=== PATIENT | male | born 1970 | race African-American/Black ===

== ENCOUNTER 2018-08-26 15:44 | Emergency (ER) | payer OTHER ==
[~2018-08-26] VITALS: Ht 188 cm; Wt 106.6 kg
[~2018-08-26 15:44] MED LIST: AMBIEN 10 MG TA10 MG; BENADRYL25 MG PO; DIPHENHIST50 MG; DIPHENHIST50 MG PO; LANTUS SUBQ; LANTUS100 UNIT/M SUBQ; LANTUSSOLASTAR SUBQ; LIPITOR20 MG PO; LISINOPRIL10 MG; NORCO 5-325 TA1 EACH PO; NOVOLIN R100 UNIT/1 IJ; NOVOLOG100 UNIT/1 SQ; OXECTA7.5 MG PO; OXYCONTIN CR 1010 M1 PO; OXYCONTIN40 MG PO; PEPCID20 MG PO; PERCOCET 10-321 EACH; PERCOCET 7.5-31 EACH PO; PHENERGAN 25 MG25 M1 PO; PHENERGAN 25 MG25 MG PO; PHENERGAN50 MG; PROTONIX40 M2; PROTONIX40 M2 PO; VIOKACE 10,4401 EACH PO; XANAX 0.5 MG0.5 MG PO; XANAX XR1 MG PO; XANAX1 MG PO
[2018-08-26] MEDS ORDERED: COUMADIN 5 MG TA5 M1 PO ×2 (15:51→19:14)
[2018-08-26 16:30] LABS: HEMATOCRIT 39.8 % (42.0-52.0); HEMOGLOBIN 13.4 gm/dL (14.0-18.0); MCH 30.1 pg (26.0-34.0); MCHC 33.7 g/dL (28.0-37.0); MCV 89.3 fL (80.0-100.0); RBC 4.45 mil/uL (4.50-6.00); RDW 15.8 % (10.5-14.5); WBC 4.1 thou/uL (4.0-11.0)
[2018-08-26 16:34] LABS: CALCIUM 9.5 mg/dL (8.5-10.1); POTASSIUM 3.7 mmol/L (3.5-5.1)
[2018-08-26 16:45] LABS: APTT 33.4 Seconds (24.5-32.8); INR 1.5; PROTIME 15.3 Seconds (9.3-11.4)
[2018-08-26] MEDS ORDERED: NORCO 5-325 TA1 EACH PO (19:14)
== END 2018-08-26 22:25 | disposition home or self-care (01) ==
LOC: ER 15:44
PROVIDERS: Emergency Medicine
DX: R51 Headache (principal); M54.2 Cervicalgia; R22.0 Localized swelling, mass and lump, head; E11.9 Type 2 diabetes mellitus without complications; I10 Essential (primary) hypertension; E78.00 Pure hypercholesterolemia, unspecified; Z79.4 Long term (current) use of insulin; Z86.718 Personal history of other venous thrombosis and embolism; Z79.01 Long term (current) use of anticoagulants; Z88.5 Allergy status to narcotic agent; Z88.8 Allergy status to other drugs, medicaments and biological substances; Z88.6 Allergy status to analgesic agent; Z91.041 Radiographic dye allergy status; W19.XXXA Unspecified fall, initial encounter; Y93.89 Activity, other specified; Y92.89 Other specified places as the place of occurrence of the external cause; Y99.8 Other external cause status

== ENCOUNTER 2018-10-09 10:40 | Emergency (ER) | payer OTHER ==
[~2018-10-09] VITALS: Ht 188 cm; Wt 111.1 kg
--- NOTE | ~2018-10-09 | EKG ---
[address] [place] [address] ELECTROCARDIOGRAM REPORT Name: PINEDAJET [id number] Admission: 10/09/18 Attend Phys: Discharge: 10/09/18 Date of : 68 Report #: [id number] THIS REPORT FOR: //name// [facility] ED Test Date: 2018-10-09 Test Time: 11:15:39 Pat Name: JET PINEDA Department: Room: Gender: M Photographic Plate Maker: VERONICA : 1970 Requested By: Vonda Mccoy Order Number: [id number] MD: Good Velasco Measurements Intervals [place] Rate: 93 P: 57 [place]: 160 QRS: 26 QRSD: 88 T: 39 QT: 357 QTc: 445 Interpretive Statements Sinus rhythm Left atrial enlargement Compared to ECG 10/08/2014 13:00:50 No significant changes Electronically Signed On 10-10-2018 7:43:47 CORRECTIONS NURSE by Good Velasco [email or web address] <ELECTRONICALLY SIGNED> By: Good Velasco MD, [facility] 10/10/18 0743 1115 1115 Good Velasco MD, FACC /EPI
[~2018-10-09 10:40] MED LIST changes: +COUMADIN 5 MG TA5 M1 PO
[2018-10-09] MEDS ORDERED: NORVASC10 MG PO (10:55)
[2018-10-09] MEDS ORDERED: ATORVASTATIN CA40 MG PO (10:55)
[2018-10-09] MEDS ORDERED: PHENERGAN 25 MG25 M1 PO (10:56)
[2018-10-09] MEDS ORDERED: PANCREAZE DR 11 EAC1 PO (10:56)
[2018-10-09] MEDS ORDERED: SEROQUEL200 MG PO (11:04)
[2018-10-09] MEDS ORDERED: NEURONTIN600 MG PO (11:04)
[2018-10-09 11:12] LABS: HEMATOCRIT 39.5 % (42.0-52.0); HEMOGLOBIN 13.3 gm/dL (14.0-18.0); MCH 30.1 pg (26.0-34.0); MCHC 33.6 g/dL (28.0-37.0); MCV 89.6 fL (80.0-100.0); RBC 4.4 mil/uL (4.50-6.00); RDW 14.6 % (10.5-14.5); WBC 4.6 thou/uL (4.0-11.0)
[2018-10-09 11:20] LABS: ANION GAP 8 mmol/L (7-16); BUN 14 mg/dL (7-18); CALCIUM 9.4 mg/dL (8.5-10.1); CHLORIDE 106 mmol/L (98-107); CO2 28 mmol/L (21-32); CREATININE 1.1 mg/dL (0.7-1.3); GLUCOSE 100 mg/dL (74-106); SODIUM 142 mmol/L (136-145)
[2018-10-09 11:28] LABS: ALBUMIN 3.6 g/dL (3.4-5.0); LIPASE 153 U/L (73-393); SGOT 24 U/L (15-37); SGPT 29 U/L (30-65); TOTAL BILIRUBIN 0.4 mg/dL (<0.1-1.0); TOTAL PROTEIN 7.7 g/dL (6.4-8.2); TROPONIN-I <0.06 ng/mL (<0.06)
[2018-10-09 13:48] LABS: INR 1.3; PROTIME 13.8 Seconds (9.3-11.4)
[2018-10-09 14:34] LABS: URINE BILIRUBIN NEGATIVE (Negative); URINE BLOOD NEGATIVE (Negative); URINE CLARITY CLEAR; URINE COLOR YELLOW; URINE GLUCOSE-RANDOM* NEGATIVE (Negative); URINE KETONES NEGATIVE (Negative); URINE LEUKOCYTES-REFLEX NEGATIVE (Negative); URINE NITRITE-REFLEX NEGATIVE (Negative); URINE PROTEIN (DIPSTICK) NEGATIVE (Negative); URINE SPECIFIC GRAVITY 1.015 (1.005-1.035); URINE UROBILINOGEN 0.2 E.U./dl (0.2-1.0)
[2018-10-09 14:54] VITALS: BP 147/90
[2018-10-09] MEDS ORDERED: COUMADIN 5 MG TA5 M1 PO (14:55)
== END 2018-10-09 15:23 | disposition home or self-care (01) ==
LOC: ER 10:40
PROVIDERS: Student in an Organized Health Care Education/Training Program
DX: R10.84 Generalized abdominal pain (principal); R79.1 Abnormal coagulation profile; E11.9 Type 2 diabetes mellitus without complications; Z90.49 Acquired absence of other specified parts of digestive tract; F17.210 Nicotine dependence, cigarettes, uncomplicated; Z88.5 Allergy status to narcotic agent; Z88.6 Allergy status to analgesic agent; Z91.041 Radiographic dye allergy status; Z88.8 Allergy status to other drugs, medicaments and biological substances

== ENCOUNTER 2018-10-27 23:01 | Emergency (ER) | payer OTHER ==
[~2018-10-27] VITALS: Ht 182.9 cm; Wt 99.8 kg
--- NOTE | ~2018-10-27 | EKG ---
[address] [place] [place] [address] ELECTROCARDIOGRAM REPORT Name: JET PINEDA [id number] Admission: 10/27/18 Attend Phys: Discharge: 10/28/18 Date of : 68 Report #: [id number] THIS REPORT FOR: //name// [facility] ED Test Date: 2018-10-27 Test Time: 23:16:56 Pat Name: JET PINEDA Department: Room: Gender: Belt Fixer: [facility] : 1970 Requested By: Bassem Chaidez Order Number: [id number] MD: Good Velasco Measurements Intervals [place] Rate: 97 P: 70 CT: 164 QRS: 35 QRSD: 91 T: 46 QT: 354 QTc: 450 Interpretive Statements Sinus rhythm Normal tracing Compared to ECG 10/09/2018 11:15:39 No significant changes Electronically Signed On 10-28-2018 7:37:44 INTAKE CLINICIAN by Good Velasco [email or web address] <ELECTRONICALLY SIGNED> By: Good Velasco MD, [facility] 10/28/18 0737 2316 2316 Good Velasco MD, FACC /EPI
[~2018-10-27 23:01] MED LIST changes: +ATORVASTATIN CA40 MG PO; +NEURONTIN600 MG PO; +NORVASC10 MG PO; +PANCREAZE DR 11 EAC1 PO; +SEROQUEL200 MG PO
[2018-10-27] MEDS ORDERED: DIPHENHIST50 MG PO (23:15)
[2018-10-28 01:29] LABS: HEMATOCRIT 35.9 % (42.0-52.0); HEMOGLOBIN 11.8 gm/dL (14.0-18.0); MCH 29.2 pg (26.0-34.0); MCV 88.4 fL (80.0-100.0); PLATELET COUNT 210 thou/uL (150-400); RBC 4.06 mil/uL (4.50-6.00); RDW 14.3 % (10.5-14.5); WBC 5.3 thou/uL (4.0-11.0)
[2018-10-28 01:34] LABS: ANION GAP 6 mmol/L (7-16); BUN 18 mg/dL (7-18); CALCIUM 9.1 mg/dL (8.5-10.1); CHLORIDE 103 mmol/L (98-107); CO2 31 mmol/L (21-32); GLUCOSE 102 mg/dL (74-106); SODIUM 140 mmol/L (136-145)
[2018-10-28 01:42] LABS: APTT 34.2 Seconds (24.5-32.8); INR 1.7
[2018-10-28 01:43] LABS: ALBUMIN 3.4 g/dL (3.4-5.0); MAGNESIUM 1.6 mg/dL (1.8-2.4); SGOT 26 U/L (15-37); SGPT 42 U/L (30-65); TOTAL BILIRUBIN 0.2 mg/dL (<0.1-1.0); TROPONIN-I <0.06 ng/mL (<0.06)
[2018-10-28 01:53] LABS: ABSOLUTE NEUTROPHILS 2.6 thou/uL (1.4-8.2); ATYPICAL LYMPHS 3 %; LARGE PLATELETS OCCASIONAL
[2018-10-28] MEDS ORDERED: TRAMADOL 50 MG50 MG PO (03:25)
[2018-10-28] MEDS ORDERED: NORFLEX100 MG PO (03:25)
[2018-10-28] MEDS ORDERED: ACETAMINOPHEN-1 EAC1 PO (03:57)
[2018-10-28 04:07] VITALS: BP 124/77
== END 2018-10-28 04:07 | disposition home or self-care (01) ==
LOC: ER 23:01
PROVIDERS: Emergency Medicine
DX: M43.6 Torticollis (principal); F41.9 Anxiety disorder, unspecified; I82.622 Acute embolism and thrombosis of deep veins of left upper extremity; E11.9 Type 2 diabetes mellitus without complications; Z90.49 Acquired absence of other specified parts of digestive tract; F17.210 Nicotine dependence, cigarettes, uncomplicated; Z88.5 Allergy status to narcotic agent; Z88.6 Allergy status to analgesic agent; Z88.8 Allergy status to other drugs, medicaments and biological substances; Z91.041 Radiographic dye allergy status

== ENCOUNTER 2018-10-30 13:38 | Emergency (ER) | payer OTHER ==
[~2018-10-30] VITALS: Ht 180.3 cm; Wt 99.8 kg
--- NOTE | ~2018-10-30 | EKG ---
[place] [address] [facility] [place] [address] ELECTROCARDIOGRAM REPORT Name: JET PINEDA Room #: [facility]P [facility] [id number] Admission: 10/30/18 Attend Phys: Discharge: 10/30/18 Date of : 68 Report #: [id number] THIS REPORT FOR: //name// [facility] ED Test Date: 2018-10-30 Test Time: 13:52:10 Pat Name: JET PINEDA Department: Room: Gender: Last Repairer: jhon : 1970 Requested By: Hakeem Parada Order Number: [id number] MD: Godo Velasco Measurements Intervals [place] Rate: 98 P: 68 NV: 158 QRS: 41 QRSD: 88 T: 52 QT: 356 QTc: 455 Interpretive Statements Sinus rhythm ST elev, probable normal early repol pattern no previous ECGs available for comparison Electronically Signed On 10-31-2018 7:57:27 CUPOLA TENDER HELPER by Good Velasco [email or web address] <ELECTRONICALLY SIGNED> By: Good Velasco MD, [facility] 10/31/18 0757 1352 1352 Good Velasco MD, FACC /EPI
[~2018-10-30 13:38] MED LIST changes: +ACETAMINOPHEN-1 EAC1 PO; +NORFLEX100 MG PO; +TRAMADOL 50 MG50 MG PO
[2018-10-30 14:51] LABS: ANION GAP 6 mmol/L (7-16); BUN 20 mg/dL (7-18); CALCIUM 9.9 mg/dL (8.5-10.1); CHLORIDE 103 mmol/L (98-107); CO2 28 mmol/L (21-32); CREATININE 1.1 mg/dL (0.7-1.3); GLUCOSE 103 mg/dL (74-106); POTASSIUM 4.2 mmol/L (3.5-5.1); SODIUM 137 mmol/L (136-145)
[2018-10-30 15:00] LABS: LIPASE 105 U/L (73-393); TROPONIN-I <0.06 ng/mL (<0.06)
[2018-10-30 15:21] LABS: HEMOGLOBIN 13.7 gm/dL (14.0-18.0); MCH 29.9 pg (26.0-34.0); MCHC 33.5 g/dL (28.0-37.0); MCV 89.3 fL (80.0-100.0); PLATELET COUNT 239 thou/uL (150-400); RBC 4.59 mil/uL (4.50-6.00); RDW 14.5 % (10.5-14.5); WBC 5.6 thou/uL (4.0-11.0)
[2018-10-30 15:23] VITALS: BP 104/78
[2018-10-30 15:44] LABS: ABSOLUTE NEUTROPHILS 3.2 thou/uL (1.4-8.2); ANISOCYTOSIS 1+; POLYCHROMASIA OCCASIONAL
== END 2018-10-30 15:24 | disposition left against medical advice (07) ==
LOC: ER 13:38
PROVIDERS: Physician Assistant
DX: R07.9 Chest pain, unspecified (principal); R10.9 Unspecified abdominal pain; M79.602 Pain in left arm; M54.9 Dorsalgia, unspecified; F17.210 Nicotine dependence, cigarettes, uncomplicated; E11.9 Type 2 diabetes mellitus without complications; Z88.6 Allergy status to analgesic agent; Z88.8 Allergy status to other drugs, medicaments and biological substances; Z91.041 Radiographic dye allergy status; Z88.4 Allergy status to anesthetic agent; Z88.5 Allergy status to narcotic agent; Z90.49 Acquired absence of other specified parts of digestive tract

== ENCOUNTER 2020-03-22 08:31 | Inpatient (IN) | payer OTHER ==
[~2020-03-22] VITALS: Ht 182.9 cm; Wt 183.0 kg
[2020-03-22 08:42] VITALS: BP 143/98
[2020-03-22 10:42] LABS: AMP/METHAMP Negative (Negative); BARBITURATES Negative (Negative); BENZODIAZEPINES Negative (Negative); COCAINE Negative (Negative); METHADONE Negative (Negative); OPIATES POSITIVE (Negative); PCP Negative (Negative)
[2020-03-22 11:49] LABS: ABSOLUTE NEUTROPHILS 2.2 thou/uL (1.4-8.2); BASOPHILS 0.7 % (0.0-2.0); EOSINOPHILS 8.3 % (0.0-3.0); HEMATOCRIT 40.5 % (42.0-52.0); HEMOGLOBIN 13.2 gm/dL (14.0-18.0); LYMPHOCYTES 22.7 % (24.0-44.0); MCH 28.6 pg (26.0-34.0); MCHC 32.7 g/dL (28.0-37.0); MCV 87.5 fL (80.0-100.0); MONOCYTES 7.2 % (1.0-8.0); PLATELET COUNT 210 thou/uL (150-400); POLYS 61.1 % (36.0-66.0); RBC 4.63 mil/uL (4.50-6.00); RDW 14.7 % (10.5-14.5); WBC 3.6 thou/uL (4.0-11.0)
[2020-03-22 12:15] LABS: APTT 28.5 Seconds (24.5-32.8); D-DIMER 0.69 ug/mLFEU (0.19-0.50); PROTIME 10.5 Seconds (9.3-11.4)
[2020-03-22 12:16] LABS: ANION GAP 6 mmol/L (7-16); BUN 9 mg/dL (7-18); CALCIUM 9.3 mg/dL (8.5-10.1); CHLORIDE 102 mmol/L (98-107); CO2 31 mmol/L (21-32); GLUCOSE 95 mg/dL (74-106); SODIUM 139 mmol/L (136-145)
--- NOTE | 2020-03-22 12:21 | EKG ---
[facility] [place] [address] ELECTROCARDIOGRAM REPORT Name: JET PINEDA Room #: [facility].#: [id number] Admission: 03/22/20 Attend Phys: Discharge: Date of : 68 Report #: [id number] THIS REPORT FOR: cc: [facility] - Clinic physician unknown [facility] - Clinic physician unknown Good Velasco MD [facility] ~ THIS REPORT FOR: //name// [facility] ED Test Date: 2020-03-22 Test Time: 08:46:38 Pat Name: JET PINEDA Department: Room: Gender: M Millwright Supervisor: FRANNIE : 1970 Requested By: Bassem Chaidez Order Number: [id number] MD: Good Velasco Measurements Intervals [place] Rate: 83 P: 80 [place]: 171 QRS: 60 QRSD: 97 T: 72 QT: 371 QTc: 436 Interpretive Statements Sinus rhythm Normal tracing Compared to ECG 10/30/2018 13:52:10 ST no significant change was found Electronically Signed On 03-22-2020 12:19:57 CDT by Good Velasco [email or web address] <ELECTRONICALLY SIGNED> By: Good Velasco MD, FAC 03/22/20 1219 5 5 Good Velasco MD, [facility] /EPI
[2020-03-22 12:25] LABS: ALBUMIN 3.6 g/dL (3.4-5.0); MAGNESIUM 1.6 mg/dL (1.8-2.4); SGOT 23 U/L (15-37); SGPT 21 U/L (30-65); TOTAL BILIRUBIN 0.4 mg/dL (<0.1-1.0); TOTAL PROTEIN 7.9 g/dL (6.4-8.2)
[2020-03-22 12:41] LABS: TROPONIN-I <0.06 ng/mL (<0.06)
[2020-03-22] MEDS ORDERED: PROTONIX40 M2 PO (12:44)
[2020-03-22] MEDS ORDERED: PERCOCET 10-321 EAC1 PO ×2 (12:44)
[2020-03-22 14:32] VITALS: BP 134/86
[2020-03-22 14:44] VITALS: BP 134/86
[2020-03-22 15:23] VITALS: BP 142/83
--- NOTE | 2020-03-22 16:48 | NUR ---
PERCOOCET 10/325MG 1 TO 2 TABS PO Q6HR AND.. OXYCONTIN ER 10MG Q12 PO BOTH VARIFIED PER PHARMACIST AT [facility] IN [facility].. [phone].
[2020-03-22 20:03] VITALS: BP 127/84
[2020-03-23 03:38] VITALS: BP 123/74
[2020-03-23 04:58] LABS: ABSOLUTE NEUTROPHILS 1.3 thou/uL (1.4-8.2); BASOPHILS 0.7 % (0.0-2.0); EOSINOPHILS 12.6 % (0.0-3.0); HEMATOCRIT 36.4 % (42.0-52.0); HEMOGLOBIN 11.9 gm/dL (14.0-18.0); LYMPHOCYTES 39.1 % (24.0-44.0); MCH 28.9 pg (26.0-34.0); MCHC 32.8 g/dL (28.0-37.0); MCV 88.2 fL (80.0-100.0); MONOCYTES 11.7 % (1.0-8.0); PLATELET COUNT 180 thou/uL (150-400); POLYS 35.9 % (36.0-66.0); RBC 4.12 mil/uL (4.50-6.00); RDW 15.1 % (10.5-14.5); WBC 3.7 thou/uL (4.0-11.0)
[2020-03-23 05:16] LABS: ANION GAP 10 mmol/L (7-16); BUN 12 mg/dL (7-18); CALCIUM 8.4 mg/dL (8.5-10.1); CHLORIDE 108 mmol/L (98-107); CO2 25 mmol/L (21-32); CREATININE 0.9 mg/dL (0.7-1.3); GLUCOSE 93 mg/dL (74-106); MAGNESIUM 1.5 mg/dL (1.8-2.4); POTASSIUM 3.8 mmol/L (3.5-5.1); SODIUM 143 mmol/L (136-145); TROPONIN-I <0.06 ng/mL (<0.06)
--- NOTE | 2020-03-23 05:49 | NUR ---
PT ALERT AND ORIENTED. C/O ABDOMINAL PAIN AND SARCOIDOSIS FLARE UP. BENADRYL IV GIVEN NEEDED. PT PAIN CONTROL SEEM TO BE UNMANAGED WITH CURRENT REGIMEN. RATED PAIN AT 7/10 THE LOWEST FOR THE WHOLE NIGHT. NO NAUSEA, VOMITING OR CHEST PAIN REPORTED DURING THE NIGHT. WILL CONTINUE TO MONITOR.
[2020-03-23 08:10] VITALS: BP 155/81
--- NOTE | 2020-03-23 18:45 | NUR ---
PT TRANSFERED VIA BED AT 1700 FROM 3W FLOOR. REPORT GOT FROM RN. PT ALERT AND ORIENTED. COMPLAINING OF CHANGE OF DIET AND ACCUCHECKS. PIV IVF INFUSING. CANNOT HAVE ANY PRN MEDS YET, WILL GIVE ORDERED. WILL CONTINUE TO MONITOR
--- NOTE | 2020-03-23 19:49 | NUR ---
Assumed patient care at 0715. Vital signs have been stable. Patient has Normal Sinus Rythym. Patient has swollen lymph nodes on neck, bilaterally. He became upset this am, stating "I can't breathe!", and, "I need to be Intubated!" Patient also upset because he wanted this nurse to give him pain medications and Benadryl early. This nurse informed patient that a Doctor's Order was needed for medication changes, he continued to complain and became very demanding. Patient also requested that Respiratory Therapy come to give him a Breathing Treatment. Respiratory Therapy came, he refused a breathing treatment, stating "I am allergic to Steroids!" Respiratory Therapy then informed patient that a Blood Gas needed to be done; patient refused this as well. Dr Aguayo notified, came to assess patient. He ordered several consults and CT Scans. Patient called several times during this shift, continued to try to get this nurse to give him pain medications and Benadryl earlier. Patient has called the Automotive Parts Clerk to complain about food, tried to call Nursing Data Security Coordinator to complain about this nurse. He calmed down later in the day. Patient was moved to [address] [place] [address] this evening, as he tested negative for COVID-19. Report given to recieving nurse.
[2020-03-23 19:59] VITALS: BP 119/71
--- NOTE | 2020-03-24 03:00 | NUR ---
ASSESSED AT START OF SHIFT PT C/O OF SEVERAL THINGS. STATED HE'S NOT DIABETIC AND DIDNT WANT AID TO CHECK HIS SUGAR. THIS NURSE EDUCATED PT AND BLOOD SUGAR CHECKED. PAIN MEDS GIVEN ROUND THE CLOCK FOR GENERALIZIED PAIN IN BODY AND AROUND LYMPH NODES. INFORMED PT HE WAS GOIING TO BE NPO AFTER MIDNIGHT FOR EGD. PT WASN'T TOO HAPPY STATES HE EATS MORE AT NIGHT. REQUESTING PO PAIN MED WITH SIPS OF WATER INFORMED JOVITA WOLFE. IV FENTYLN GIVEN PARTIAL RELIEF, BENADRYL ALSO ADMINISTERED. PT STILL NPO, IV INTACT AND FLUIDS INFUISING. WILL CONT TO MONITOR TILL EOS.
[2020-03-24 05:14] VITALS: BP 113/78
[2020-03-24 06:31] LABS: HEMATOCRIT 35.7 % (42.0-52.0); HEMOGLOBIN 11.6 gm/dL (14.0-18.0); MCH 28.8 pg (26.0-34.0); MCHC 32.5 g/dL (28.0-37.0); MCV 88.6 fL (80.0-100.0); RBC 4.03 mil/uL (4.50-6.00); RDW 15.3 % (10.5-14.5); WBC 3.1 thou/uL (4.0-11.0)
[2020-03-24 06:40] LABS: INR 1.3; PROTIME 13.4 Seconds (9.3-11.4)
[2020-03-24 06:45] LABS: CALCIUM 8.3 mg/dL (8.5-10.1); CREATININE 0.9 mg/dL (0.7-1.3); MAGNESIUM 1.6 mg/dL (1.8-2.4)
--- NOTE | 2020-03-24 13:08 | NUR ---
ASSUMED CARE OF THE PT AT 0700. PT REFUSED VITALS IN THE AM WELL ACCUCHEK. PT HAS DRUG SEEKING BEHAVIOR, BECAME IRATE ONCE HE WAS TOLD THAT FENTANYL WAS D/C'D AND THAT DILAUDID WAS A ONE TIME DOSE, ALSO EXPLAINED TO PT THAT OTHER MEDS HAD TO BE GIVEN ON A SCHEDULE, PT BECAME UPSET AND REQUESTED TO LEAVE AMA, REFUSED EGD THAT WAS SCHEDULED FOR TODAY. REFUSED SCD'S. PT IS AMBULATORY AND USES TOILET. ADVISED DOCTOR OF PTS BEHAVIOR. IV REMOVED AND AMA PAPERWORK SIGNED. NO PO MEDS GIVEN PT WAS NPO. PT D/C'D.
--- NOTE | 2020-03-24 17:22 | HC ---
[facility] [place] [address] CONSULTATION Name: JET PINEDA Room #: 439-P [facility] IN M.R.#: [id number] Admission: 03/22/20 Attend Phys: Lucho Farah MD Discharge: 03/24/20 Date of : 68 Report #: [id number] THIS REPORT FOR: cc: [facility] - Clinic physician unknown [facility] - Clinic physician unknown Mat Chan MD ~ CC: [facility] unknown Chris Farah DATE OF SERVICE: 03/23/2020 SURGEON: Dr. Mat Chan. REASON FOR CONSULTATION: Multitude of symptoms of the head and neck. HISTORY OF PRESENT ILLNESS: The patient is a 49-year-old gentleman who is known to our practice and was seen by my partner, Dr. Daly last in 1998, 20 years ago. At that time with parotitis pre-dating his diagnosis of sarcoidosis. The patient presented to the Emergency Department yesterday with complaints of left-sided chest pain. He used to live in [place], moved to [place], [place] and then has recently moved back from [place] to [place]. He has been followed at [facility]. The patient has had a primary care there and recommendations have been made for him to see a customer service manager, but that never happened. His history is significant for factor V Leiden deficiency with the sarcoidosis. He has a history of previous pulmonary emboli and DVTs. The patient is currently having some gastroenterology complaints and including nausea and vomiting starting 72 hours ago and emesis, the patient has been seen by GI and EGD and has been planned for tomorrow. He complained to Dr. Aguayo about a sensation of pressure around his neck and parotids. This is a frequent problem for him with frequent exacerbations of swelling of the parotid with his sarcoidosis. The patient states that he in the past has had severe swelling to the point that he has needed intubation x6 in the past. I have reviewed his CT scan of neck done without contrast today. This showed a very patent airway. There was no pathologically enlarged adenopathy, but slightly larger parotids without abscess. These would be consistent with his known sarcoidosis. The patient also has mediastinal and hilar adenopathy in addition to abdominal adenopathy. The patient has had difficulty with steroids for treatment of his sarcoidosis. [address] [place] [address] CONSULTATION Name: JET PINEDA Room #: 439-P [facility] IN .R.#: [id number] Admission: 03/22/20 Attend Phys: Lucho Farah MD Discharge: 03/24/20 Date of : 68 Report #: [id number] He did not initially get that history, but on talking with Dr. Aguayo went back and challenged the patient with this. He states that this has caused him skin rashes in addition to exacerbation of airway swelling. I explained to him that steroids are mainstay treatment for the sarcoid. I have suggested to him that we involve a customer service manager here in the hospital for other options. All of these are not without some risk in this COVID-19 pandemic. PAST MEDICAL HISTORY: Significant for sarcoidosis, factor V Leiden, history of pulmonary emboli, history of deep venous thrombosis, history of pancreatitis, history of colon polyps, history of diabetes mellitus. PAST SURGICAL HISTORY: Cholecystectomy and shoulder surgery. FAMILY HISTORY: Significant for father with colon cancer. SOCIAL HISTORY: The patient does have a supportive family. He does use tobacco. He denies alcohol or illicit drugs. REVIEW OF SYSTEMS: Positive for a sensation of fullness in his parotids with some pain and trismus. Otherwise, he is also having nausea and vomiting and some abdominal pain. Other 12-point review of systems negative. PHYSICAL EXAMINATION: GENERAL: Shows a well-developed 49-year-old male seen in his hospital room. He is alert, awake, oriented, and conversant. He is having no airway distress. VITAL SIGNS: Show temperature of 97.8, pulse of 83, blood pressure 155/81, respirations 16. He is 96-100% on room air. HEENT: He is normocephalic. His pupils equal, round and reactive to light. Otologic and nasal exam shows a deviated septum to the left. Oral cavity: Tonsils are 2+, nonacute. Tongue and floor of mouth are normal. No swelling of the floor of mouth or tongue and no induration of tongue on palpation. The patient does have generous sialosis present secondary to sarcoid. This is somewhat tender. There is no fluctuant abscess. There is no overlying skin redness. The neck shows shotty level 2 and level 3 lymphadenopathy that does not appear to be abnormal in size. This is nontender. NECK: Trachea is in the midline. Thyroid gland is normal size. There are no masses. NEUROLOGIC: Cranial nerves 2-12 are intact. Motor, sensory and cerebellar exams are otherwise normal. LABORATORY DATA: Blood work today, CBC shows a white count of 3700 with a hemoglobin of 11.9, platelets of 180,000. Metabolic panel shows normal electrolytes with the exception of a slightly elevated chloride. The patient's calcium was 8.4, magnesium 1.5. I have reviewed the CT of neck without contrast with findings as above. There is no abscess. The lymph nodes that I see as well as parotids are consistent with his history of sarcoidosis. The patient [facility] [address] [place] [address] CONSULTATION Name: JET PINEDA Room #: 439-P [facility] IN M.R.#: [id number] Admission: 03/22/20 Attend Phys: Lucho Farah MD Discharge: 03/24/20 Date of : 68 Report #: [id number] does have mediastinal adenopathy on CT chest without contrast. ASSESSMENT: 1. Longstanding history of chronic sarcoidosis resulting in shotty lymphadenopathy of the neck without any airway compromise. In addition, involvement of the patient's parotid glands, more than submandibular glands resulting in intermittent sialosis. This is not consistent with an acute bacterial sialadenitis. 2. Hematemesis with a hemoglobin of 11.9. The patient is pending GI consultation for esophagogastroduodenoscopy. 3. History of factor V Leiden with previous history of deep venous thrombosis and pulmonary emboli. 4. The patient has been ruled out from COVID-19 on PCR testing. 5. Anxiety. Long discussion with the patient today concerning his airway, I assured him that things are safe. Today, we discussed steroids as treatment of his sarcoidosis. The patient is reticent to use this as he has had a bad experience in the past with steroids. I told him that this may be coincidental. I have suggested and talked with Dr. Aguayo about Rheumatology consultation to discuss other treatment options for sarcoidosis. I reviewed with him that all of these carry some risk in this COVID-19 pandemic for immunosuppression. 6. History of pancreatitis. PLAN: 1. Agree with current treatment. I have discussed symptomatic treatment of his parotids including heat with a heating pad 20 minutes 3 times a day, increase oral fluid intake and sialagogues in the form of lemon drops or other sour candy, sugar free. 2. Rheumatology consultation. I have discussed with Dr. Aguayo for other options on medication treatment as the patient feels that he cannot take oral or parenteral steroids. 3. I see no evidence of abscess or other mass on CT that would require surgical intervention at this point. 4. I appreciate the consultation and ability to share in his care. I will be available and follow peripherally. I am available for any change in clinical status. <ELECTRONICALLY SIGNED> By: Mat Chan MD 03/24/20 1722 1555 1752 Mat Chan MD /nt
== END 2020-03-24 10:43 | disposition left against medical advice (07) | DRG 197 ==
LOC: ER 08:31 → EROBS 14:01 → 3W 14:55 → 4S 03-23 17:02
PROVIDERS: Emergency Medicine; Internal Medicine; Nurse Practitioner; ADMIT Hospitalist
DX: D86.9 Sarcoidosis, unspecified (principal); D68.2 Hereditary deficiency of other clotting factors; K92.0 Hematemesis; E11.9 Type 2 diabetes mellitus without complications; F17.210 Nicotine dependence, cigarettes, uncomplicated; D64.9 Anemia, unspecified; F41.9 Anxiety disorder, unspecified; G89.29 Other chronic pain; Z20.828 Contact with and (suspected) exposure to other viral communicable diseases; Z86.711 Personal history of pulmonary embolism; Z91.041 Radiographic dye allergy status; Z79.891 Long term (current) use of opiate analgesic; Z90.49 Acquired absence of other specified parts of digestive tract; Z88.6 Allergy status to analgesic agent; Z88.8 Allergy status to other drugs, medicaments and biological substances; Z86.718 Personal history of other venous thrombosis and embolism; Z80.0 Family history of malignant neoplasm of digestive organs; Z53.29 Procedure and treatment not carried out because of patient's decision for other reasons
CPT/HCPCS: 10100; 10195; 10879

== ENCOUNTER 2020-04-22 08:25 | Inpatient (IN) | payer OTHER ==
[~2020-04-22] VITALS: Ht 180.3 cm; Wt 82.6 kg
[2020-04-22] VITALS (22 sets, daily range): BP systolic 98–151; BP diastolic 70–104
[~2020-04-22 08:25] MED LIST changes: +PERCOCET 10-321 EAC1 PO
[2020-04-22 09:09] LABS: HEMOGLOBIN 12.6 gm/dL (14.0-18.0); MCH 29.2 pg (26.0-34.0); MCHC 33.1 g/dL (28.0-37.0); MCV 88.1 fL (80.0-100.0); PLATELET COUNT 192 thou/uL (150-400); RBC 4.32 mil/uL (4.50-6.00); RDW 15.2 % (10.5-14.5); WBC 3.5 thou/uL (4.0-11.0)
[2020-04-22 09:18] LABS: ANION GAP 6 mmol/L (7-16); BUN 13 mg/dL (7-18); CALCIUM 9.2 mg/dL (8.5-10.1); CHLORIDE 107 mmol/L (98-107); CO2 30 mmol/L (21-32); CREATININE 0.8 mg/dL (0.7-1.3); GLUCOSE 103 mg/dL (74-106); POTASSIUM 3.5 mmol/L (3.5-5.1); SODIUM 143 mmol/L (136-145)
--- NOTE | 2020-04-22 09:26 | EKG ---
[facility] [place] [address] ELECTROCARDIOGRAM REPORT Name: JET PINEDA Room #: PRE M..#: [id number] Admission: Attend Phys: Discharge: Date of : 68 Report #: [id number] THIS REPORT FOR: cc: [facility] - Clinic physician unknown [facility] - Clinic physician unknown Good Velasco MD [facility] ~ THIS REPORT FOR: //name// [facility] ED Test Date: 2020-04-22 Test Time: 08:30:49 Pat Name: JET PINEDA Department: Room: Gender: M Visual C Developer: [place] : 1970 Requested By: Nikos Kaminski Order Number: [id number] MD: Good Velasco Measurements Intervals [place] Rate: 87 P: 89 [place]: 164 QRS: 72 QRSD: 89 T: 59 QT: 365 QTc: 439 Interpretive Statements Sinus rhythm No significant abnormality Compared to ECG 03/22/2020 08:46:38 No significant change was found Electronically Signed On 04-22-2020 9:24:51 CDT by Good Velasco [email or web address] <ELECTRONICALLY SIGNED> By: Good Velasco MD, [facility] 04/22/20923 9 9 Good Velasco MD, FACC /EPI
[2020-04-22 09:27] LABS: TROPONIN-I <0.06 ng/mL (<0.06)
[2020-04-22 10:23] LABS: BE(vivo) -2.5 mmol/L (-2 to +3); HCO3 23.9 mmol/L (22.0-26.0); PCO2 47.4 mmHg (35.0-45.0); PO2 156.4 mmHg (80.0-100.0); sO2 98.8 % (92.0-98.0)
[2020-04-22 10:49] LABS: ABSOLUTE NEUTROPHILS 1.9 thou/uL (1.4-8.2); ANISOCYTOSIS 1+
--- NOTE | 2020-04-22 19:50 | NUR ---
PATIENT ADMITTED TO ICU AT 1540 BY THIS RN. PATIENT ON VENT AND SEDATED ON PROPOFOL; MOVING EXTREMITIES, NOT FOLLOWING COMMANDS; VSS. UNABLE TO REACH SISTER AT [phone] (LISTED DPOA); CALLED JULIO CESAR ZULUAGA - SECONDARY ORNAMENTAL RAIL INSTALLER AT [phone] AND LEFT A VOICEMAIL. REPORT GIVEN TO ONCOMING RN.
[2020-04-23] VITALS (28 sets, daily range): BP systolic 91–137; BP diastolic 55–88
--- NOTE | 2020-04-23 05:13 | NUR ---
Pt has rested well through noc lightly sedated on ventilator. Propofol at 35 mcg/kg/min and Fentanyl gtt @ 100 mcg/hr as pt reports chronic generalized pain. Pt able to make needs known by writing and seems to be neurologically intact. Tolerating vent settings. Grimaldo to DD w/ marginal amount of purulent/pink urine. Pt repositioned q2-3 hours and per his requests. Bed low and locked, bed alarm activated for patient safety. Will continue to monitor closely.
[2020-04-23 05:14] LABS: BE(vivo) -2.4 mmol/L (-2 to +3); HCO3 20.9 mmol/L (22.0-26.0); PCO2 31.6 mmHg (35.0-45.0); pH 7.439 (7.360-7.450); sO2 99.2 % (92.0-98.0)
[2020-04-23 07:33] LABS: URINE BILIRUBIN NEGATIVE (Negative); URINE BLOOD NEGATIVE (Negative); URINE COLOR YELLOW; URINE GLUCOSE-RANDOM* NEGATIVE (Negative); URINE KETONES NEGATIVE (Negative); URINE LEUKOCYTES-REFLEX TRACE (Negative); URINE NITRITE-REFLEX NEGATIVE (Negative); URINE PROTEIN (DIPSTICK) NEGATIVE (Negative); URINE SPECIFIC GRAVITY >= 1.030 (1.005-1.035)
[2020-04-23 07:39] LABS: URINE CLARITY CLOUDY
[2020-04-23 09:19] LABS: CALCIUM 8.9 mg/dL (8.5-10.1); CREATININE 0.9 mg/dL (0.7-1.3)
[2020-04-23 09:21] LABS: APTT 29.6 Seconds (24.5-32.8); INR 1.1; PROTIME 10.9 Seconds (9.3-11.4)
--- NOTE | 2020-04-23 09:43 | 2DMMODE ---
[facility] [address] [address] 2 D/M-MODE ECHOCARDIOGRAM Name: JET PINEDA Room #: 245-P ADM IN M.R.#: [id number] Admission: 04/22/20 Attend Phys: Rja Eng MD Discharge: Date of : 68 Report #: [id number] THIS REPORT FOR: cc: [facility] - Clinic physician unknown [facility] - Clinic physician unknown Good Velasco MD [facility] ~ APPROVED REPORT Study performed: 04/23/2020 08:43:22 EXAM: Comprehensive 2D, Doppler, and color-flow Echocardiogram Patient Location: ICU Room #: 249 Status: routine BSA: 2.01 HR: 51 bpm BP: 93/58 mmHg Rhythm: NSR Other Information Study Quality: Good/patient on vent Indications History of sarcoidosis. Chest tightness, short of breath. Hx: DM 2D Dimensions RVDd: 35.21 mm IVSd: 9.55 (7-11mm) LVOT Diam: 21.92 (18-24mm) LVDd: 45.20 mm PWd: 8.99 (7-11mm) LVDs: 30.14 (25-40mm) Aortic Root: 33.51 mm Volumes Left Atrial Volume (Systole) Single Plane 4CH: 30.99 mL Single Plane 2CH: 53.86 mL LA ESV Index: 23.00 mL/m2 Aortic Valve AoV Peak Shravan.: 1.17 m/s AO Peak Gr.: 5.49 mmHg LVOT Max P.57 mmHg LVOT Max V: 1.18 m/s EILEEN Vmax: 3.[address] [facility] [address] [place] [address] 2 D/M-MODE ECHOCARDIOGRAM Name: PINEDAJET Room #: 245-P [facility] IN Shay.#: [id number] Admission: 04/22/20 Attend Phys: Raj Eng MD Discharge: Date of : 68 Report #: [id number] Mitral Valve E/A Ratio: 1.4 MV Decel. Time: 195.12 ms MV E Max Shravan.: 0.62 m/s MV A Shravan.: 0.43 m/s MV PHT: 56.58 ms IVRT: 107.27 ms Pulmonary Valve PV Peak Shravan.: 0.68 m/s PV Peak Gr.: 1.85 mmHg Pulmonary Vein P Vein S: 0.52 m/s P Vein A: 0.27 m/s P Vein D: 0.42 m/s P Vein A Dur.: 90.0 msec P Vein S/D Ratio: 1.24 Tricuspid Valve TR Peak Shravan.: 2.31 m/s RAP Estimate: 10.00 mmHg TR Peak Gr.: 21.36 mmHg PA Pressure: 31.00 mmHg Left Ventricle The left ventricle is normal size. There is normal LV segmental wall motion. There is normal left ventricular wall thickness. Left ventricular systolic function is normal. LVEF is 55-60%. The left ventricular diastolic function is normal. Right Ventricle The right ventricle is normal size. The right ventricular systolic function is normal. Atria The left atrium size is normal. The right atrium size is normal. Aortic Valve The aortic valve leaflets are mildly thickened. No aortic regurgitation is present. There is no aortic valvular stenosis. Mitral Valve The mitral valve is normal in structure. Mild mitral regurgitation. Tricuspid Valve [facility] [place] [address] 2 D/M-MODE ECHOCARDIOGRAM Name: JET PINEDA Room #: 245-P ADM IN M.R.#: [id number] Admission: 04/22/20 Attend Phys: Raj Eng MD Discharge: Date of : 68 Report #: [id number] The tricuspid valve is normal in structure. Mild tricuspid regurgitation. Estimated PAP is 30mmHg. Pulmonic Valve The pulmonary valve is normal in structure. There is no pulmonic valvular regurgitation. Great Vessels The aortic root is normal in size. Ascending aorta is not well visualized. IVC is normal in size and collapses <50% with inspiration. Pericardium There is no pericardial effusion. <Conclusion> Left ventricular systolic function is normal. There is normal LV segmental wall motion. LVEF is 55-60%. Normal diastolic function The aortic valve leaflets are mildly thickened. No aortic regurgitation or stenosis The mitral valve is normal in structure. Mild mitral regurgitation. Mild tricuspid regurgitation. Estimated pulmonary artery pressure of 30mmHg. There is no pericardial effusion. <ELECTRONICALLY SIGNED> By: Good Velasco MD, [facility] 04/23/20939 9 9 Good Velasco MD, FACC /INF
--- NOTE | 2020-04-23 10:00 | NUR ---
ASSESSMENTS AND INTERVENTIONS DOCCUMENTED. RN ASSUMED CARE OF PATIENT AT 0700. PATIENT ON PROPFOL AND FENTANYL GTT. PATIENT WRITING ON PAPER AND STATING HE IS IN PAIN AND HAS A HIGH TOLERANCE TO PAIN MEDICATIONS. DR VILLANUEVA AWARE, AND ORDER FOR ATIVAN GIVEN. ECHO AT BEDSIDE.
--- NOTE | 2020-04-23 10:31 | NUR ---
chart review. pt remain on vent is able to write on paper with light sed. unable to visit with pt rt on vent unable to talk via phone call. cm tried calling contract stalin, no answer. will cont following as needed for dc needs.
[2020-04-23 11:07] LABS: ALBUMIN 3.1 g/dL (3.4-5.0); DIRECT BILIRUBIN 0.1 mg/dL (<0.1-0.2); TOTAL BILIRUBIN 0.6 mg/dL (0.2-1.0); TOTAL PROTEIN 6.9 g/dL (6.4-8.2)
[2020-04-23 11:22] LABS: HEMATOCRIT 34.3 % (42.0-52.0); HEMOGLOBIN 11.7 gm/dL (14.0-18.0); MCH 29.6 pg (26.0-34.0); MCHC 34.1 g/dL (28.0-37.0); MCV 86.9 fL (80.0-100.0); RBC 3.95 mil/uL (4.50-6.00); RDW 14.9 % (10.5-14.5)
[2020-04-23 17:09] LABS: AMP/METHAMP Negative (Negative); BARBITURATES Negative (Negative); BENZODIAZEPINES POSITIVE (Negative); COCAINE Negative (Negative); METHADONE Negative (Negative); OPIATES POSITIVE (Negative); PCP Negative (Negative)
--- NOTE | 2020-04-23 22:21 | NUR ---
2100 - PT REQUESTED I CALL HIS SISTER (Denice). CALLED PHONE NUMBER LISTED ON MEDICAL RECORD - NO ANSWER AND UNABLE TO LEAVE MESSAGE. ATTEMPTED TO CALL HER WTIH ANOTHER NUMBER PROVIDED BY PT. PHONE RANG AND WENT TO VOICEMAIL. THIS RN INFORMED PT THAT I WAS UNABLE TO REACH HIS SISTER.
[2020-04-24] VITALS (29 sets, daily range): BP systolic 111–152; BP diastolic 66–108
--- NOTE | 2020-04-24 01:15 | NUR ---
PT'S HR 35-40S SO FAR THIS SHIFT. SBP 120S-140S. PER DAY SHIFT RN, DR VILLANUEVA IS AWARE OF LOW HR. TITRATED FENTANYL AND PROPOFOL GTTS DOWN SLIGHTLY TO SEE IF HR WOULD IMPROVE. PT THEN BECAME VERY RESTLESS AND STATED HE COULD NOT SLEEP. HE IS NORMALLY LIGHTLY SEDATED OR COMFORTABLY DROWSY WITH SEDATION ON THE VENT. HE ARROUSES EASILY AND FOLLOWS COMMANDS. HE COMMUNICATES BY MOUTHING WORDS OR WRITING. RN OFFERED PT PRN LORAZEPAM BUT HE REFUSED AND SAID IT DOESN'T WORK FOR HIM. PRN BENADRYL GIVEN INSTEAD. PT WAS THEN ABLE TO GO TO RELAX AND GO TO SLEEP. HR STILL 35-40S. PT IS STILL EASILY ARROUSABLE BUT QUICKLY FALLS BACK TO SLEEP. WILL CONTINUE TO MONITOR CLOSELY.
[2020-04-24 06:12] LABS: CALCIUM 8.6 mg/dL (8.5-10.1); CREATININE 0.8 mg/dL (0.7-1.3); POTASSIUM 3.9 mmol/L (3.5-5.1)
--- NOTE | 2020-04-24 07:37 | NUR ---
PT SLEPT MOST OF THE NIGHT AFTER BEING GIVEN BENADRYL. AFEBRILE. Q2H TURN TO PREVENT SKIN BREAKDOWN. ORAL CARE PROVIDED. REMAINS LIGHTLY SEDATED WITH FENTANYL AND PROPOFOL GTTS. ADEQUATE URINE OUTPUT VIA MARTINEZ. FALL PRECAUTIONS IN PLACE. REPORT GIVEN TO DAY SHIFT RN. PROGRESSING SLOWLY TOWARD POC GOALS.
--- NOTE | 2020-04-24 21:44 | NUR ---
UPON INITIAL ASSESSMENT, PT DENIED ANY PAIN EXCEPT THAT HE INDICATED HE WAS HUNGRY. PT EDUCATED ON POC AND THAT HE CANNOT EAT AT THIS TIME. PT INDICATED UNDERSTANDING. PT IS LIGHTLY SEDATED WITH PROPOFOL AND FENTANYL GTTS. HE IS EASILY ARROUSABLE TO VERBAL STIMULI AND FOLLOWS COMMANDS. AFEBRILE. COMPLETE BED BATH GIVEN. PT RESTING CALMLY AT THIS TIME. HE INDICATED HE WAS COMFORTABLE AND WILL GO TO SLEEP. WILL CONTINUE TO MONITOR.
[2020-04-25] VITALS (26 sets, daily range): BP systolic 109–155; BP diastolic 67–100
--- NOTE | 2020-04-25 03:30 | NUR ---
PT HAS BEEN RESTING WELL DURING THE NIGHT WITH LIGHT SEDATION. HR 40S MOST OF THE SHIFT. AFEBRILE. REPOSITIONED TO PREVENT SKIN BREAKDOWN. ORAL CARE PROVIDED. FALL PRECAUTIONS IN PLACE. PROGRESSING TOWARD POC GOALS. WILL CONTINUE TO MONITOR FURTHER.
[2020-04-25 06:16] LABS: HEMATOCRIT 33.8 % (42.0-52.0); HEMOGLOBIN 11.2 gm/dL (14.0-18.0); MCH 29.1 pg (26.0-34.0); MCV 88.2 fL (80.0-100.0); RBC 3.83 mil/uL (4.50-6.00); RDW 15.4 % (10.5-14.5); WBC 7.4 thou/uL (4.0-11.0)
[2020-04-25 06:34] LABS: CALCIUM 8.4 mg/dL (8.5-10.1); CREATININE 0.8 mg/dL (0.7-1.3); POTASSIUM 3.9 mmol/L (3.5-5.1)
[2020-04-25 06:45] LABS: TROPONIN-I <0.06 ng/mL (<0.06)
[2020-04-25 09:25] LABS: BE(vivo) -3.5 mmol/L (-2 to +3); HCO3 21.5 mmol/L (22.0-26.0); PO2 124.1 mmHg (80.0-100.0); sO2 98.4 % (92.0-98.0)
--- NOTE | 2020-04-25 11:35 | EKG ---
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
--- NOTE | 2020-04-25 12:55 | NUR ---
ATTEMPTED WEANING/CPAP TRIAL THIS AM. AND DR. TATE INFORMED FO RESULTS. INSTRUCTED TO KEEP PT ON MECHANICAL VENTILATOION FOR TODAY AND DR. TATE WILL ATTEMPT EXTUBATION ON SUNDAY.
--- NOTE | 2020-04-25 18:00 | NUR ---
PT REMAINED ON VENTILATOR RESTING IN BEDANDON SEDATION. PT SCHEDULED TO BE EXTUBATED IN AM PER DR. TATE. PT PROGRESSING TOWARDS GOALS.
[2020-04-26] VITALS (28 sets, daily range): BP systolic 124–170; BP diastolic 75–109
--- NOTE | 2020-04-26 01:34 | NUR ---
PT SEDATED COMFORTABLY ON THE VENT. PROPOFOL GTT AND FENTANYL GTT INFUSING. PT OPENS EYES AND RESPONDS TO VERBAL OR TACTILE STIMULI. PT NODS HEAD TO YES/NO QUESTIONS. AFEBRILE. HR 30S-50S. SB ON TELE. ORAL CARE PROVIDED. PROGRESSING SLOWLY TOWARD POC GOALS. WILL CONTINUE TO MONITOR.
[2020-04-26 05:19] LABS: CALCIUM 8.2 mg/dL (8.5-10.1); CREATININE 0.8 mg/dL (0.7-1.3); POTASSIUM 3.7 mmol/L (3.5-5.1)
--- NOTE | 2020-04-26 09:15 | NUR ---
0910- Dr. Farah updated on patient plan of care to perform cpap trial today and possible extubation.
--- NOTE | 2020-04-26 11:28 | NUR ---
Nutrition: Pt day 5 vent but plans for extubation today. If unable to extubate, rec start enteral feeds.
[2020-04-26 13:58] LABS: BE(vivo) -2.2 mmol/L (-2 to +3); HCO3 23.3 mmol/L (22.0-26.0); PCO2 42.2 mmHg (35.0-45.0); PO2 103.3 mmHg (80.0-100.0); pH 7.359 (7.360-7.450); sO2 97.5 % (92.0-98.0)
--- NOTE | 2020-04-26 14:50 | NUR ---
cpap trial today from 1236- until extubation at 1450. ABG performed and results noted to Dr. Pastor. He expressed to extubate patient. Patients Respiratory rate was regular 7-16 Heart rate sinus bradycardia and sinus rhythm 40- 60's, blood pressure 130's-170's, Patient was midly anxious in regards to getting extubated and the process causing pain. 1450- patient extubated. tolerated well.
--- NOTE | 2020-04-26 16:27 | NUR ---
SW reviewed chart and spoke with attending physician. Pt remains intubated and in ICU. Pt to have CPAP trials with goal of extubation today. Will need therapy evals ordered when pt is able to participate. SW is following to assist as needed with discharge planning.
--- NOTE | 2020-04-26 17:24 | NUR ---
1720- Patient report he feels as if his throat is swelling again. 02 Saturation 97%, Heart rate 77 bpm, BP 150/88, some swelling noted on his neck/mandible area. Nurse placed call to Dr. Pastor. Nurse to continue to monitor.
--- NOTE | 2020-04-26 17:31 | NUR ---
4257- Nurse talked with Dr. Pastor, patient to receive oral benedryl to assess if this helps. Per physician, it is ok for patient to take oral liquids to treat hypoglycemia at this time.
--- NOTE | 2020-04-26 17:45 | NUR ---
Patient expressed he can not take applejuice or any fruit juice because he is allergic to it. He also expressed he is allergic to eggs, citrus fruits, tomatoes, and most fruit and vegitables. Nurse updated physician in regards to blood glucose and patient being unable to take oral juice or protocol drink for his glucose level. Nurse awaiting order.
--- NOTE | 2020-04-26 18:12 | NUR ---
Nurse has been updating Dr. Pastor in regards to what patient expresses. Benedryl given per physician order. Patient expressed he does not like to bother his sister, who is his spokesperson and that he does not want anyone else know he was intubated or his condition. Nurse asked patient is that true even if he gets really sick, he nodded yes. Benedryl given, nurse to continue to monitor patient status. BP 170/94 HR 45 O2 sat on room air 98 RR 13 No apparent distress at this time.
--- NOTE | 2020-04-26 19:35 | NUR ---
Patient not progressing towards plan of care. Patient crying and expressing that he feels we are not treating his pain and that it had been four hours at 1830 since he got pain medication. Nurse updated him on time frame given of pain medication and expressed nurse will call Dr. Pastor again in regards to his pain. HR 30's-50's bpm. Patient expressed he was leaving against medical advice when RN updated him that the physician was rounding to see him again shortly. He expressed he did not want to see the physician but that he just wanted pain medication. Nurse provided reassurance and expressed that the physician wants to evaluate the swelling and his vital signs and come assess him in person for a 1:1 update. Patient was very tearful and anxious at this and expressed he will leave. Nurse expressed he has a TICC line that will need to be removed before he leaves. He expressed that he will pull the line himself. Nurse provided education to him in regards to the damage that he may cause if he pulls the line himself. Nurse provided reassurance again and patient stayed safe in room, now Dr. Pastor is in patient room assessing him and talking with him. Report given to assembler 1st shift RN for continuation of close monitoring of patient status.
--- NOTE | 2020-04-26 20:00 | NUR ---
PT WANTING TO GO HOME AMA. DR HOLCOMB SPOKE WITH PT AT [facility] ABOUT HIS MEDICAL CONDITION. DR CASAS CONSULTED TO SEE PT IN AM. PT HAS OPTED TO STAY IN ICU OVER NIGHT NOW. VSS O2 SAT 97 % ON ROOM AIR. WANTING PAIN MED FOR ABDOMINAL AND CHEST DISCOMFORT. WILL CONT TO MONITOR.
[2020-04-27] VITALS (15 sets, daily range): BP systolic 116–145; BP diastolic 64–97
--- NOTE | 2020-04-27 06:00 | NUR ---
VSS HAS NOT SLEPT At all TONIGHT. WANTING PAIN MED Q 2 HRS. 3500 CC UO THIS SHIFT. UP TO TOILET HAD A LARGE SOFT LOOSE STOOL. STRONG ON HIS FEET. FENTANYL 50 MCG GIVEN APPROX Q 2 HRS FOR CHEST AN D ABDOMINAL PAIN. WILL CONT TO MONITOR.
[2020-04-27 06:05] LABS: HEMATOCRIT 34.7 % (42.0-52.0); HEMOGLOBIN 11.7 gm/dL (14.0-18.0); MCH 29.3 pg (26.0-34.0); MCHC 33.6 g/dL (28.0-37.0); MCV 87.2 fL (80.0-100.0); RBC 3.98 mil/uL (4.50-6.00); RDW 15.1 % (10.5-14.5); WBC 6.5 thou/uL (4.0-11.0)
[2020-04-27 06:24] LABS: CALCIUM 7.8 mg/dL (8.5-10.1); CREATININE 0.8 mg/dL (0.7-1.3); POTASSIUM 3.2 mmol/L (3.5-5.1)
--- NOTE | 2020-04-27 07:45 | NUR ---
0377- nurse paged Dr. Eng as patient expressed his throat is closing. Hr 52 Room air 97% RR 14 He is calm Lung sounds are clear BP 129/80 No apparent distress Nurse to continue to monitor patient status.
--- NOTE | 2020-04-27 07:48 | NUR ---
0738- Nurse talked with Dr. Eng, update on patient status. He expressed to have ENT come by and perform a Direct Laryngoscopy. Have Speech therapy come by and see patient for swallow evaluation. Leave all lines in place. Do not give benedryl at this time.
--- NOTE | 2020-04-27 08:08 | NUR ---
0805- Nurse left message with ENT, Dr. Daly, per Dr. Eng's request. Will await his return call.
--- NOTE | 2020-04-27 08:22 | NUR ---
0826- Nurse went in room with Dr. Arzate's nurse. She updated him on their plan of care for outpatient treatment. Nurse updated patient on physician orders, Nurse expressed that physician is coming to evaluate patient, as well as speech therapy, and ENT. Patient upset about physicians coming to see him and expressed he just needs medications.
--- NOTE | 2020-04-27 08:40 | NUR ---
0835- Per speech therapy, patient expressed can not do swallow evaluation because he needs benedryl. O2 saturation 97% HR 46 RR 13 No respiratory distress noted.
--- NOTE | 2020-04-27 09:51 | NUR ---
0945- Nurse provided patient with IV pain medication per physician order and clinical parameters. Patient then asked for an IV medication for anxiety. Nurse provided education about allowing the fentanyl to kick in and help, he expressed he needs something now. Nurse to re-evaluate medications and provide comfort as able.
--- NOTE | 2020-04-27 14:01 | NUR ---
Catheter removed per physician order prior to him working with therapy. He then has his TICC line discontinued by IR staff without complications. His right EJ IV remains intact and flushes well. He then worked with physical therapy and ambulated around the ICU without distress. He is back in the chair at this time. During ambulation, per report, oxygenation remained 99-100%, HR <110 bpm, no shortness of air noted. Patient asked if he could be discharged now and follow up with ENT as outpatient. Nurse talked with Primary Physician who expressed that it would be best for patient to have his throat evaluated prior to discharge.
--- NOTE | 2020-04-27 14:23 | NUR ---
4546- Patient expressed he is ready to leave and does not want any more tests/ no ENT evaluation. He expressed he wants to sign the paper and leave now. Nurse provided reassurance without success. He expressed he will not take the potassium because it will make his stomach upset. Nurse paged Dr. Eng to update him on this.
--- NOTE | 2020-04-27 14:48 | NUR ---
IV REMOVED PATIENT EXPRESSED HE IS WALKING OUT NOW AND IS GETTING DRESSED. ANOTHER PAGE PLACED TO PHYSICIAN.
--- NOTE | 2020-04-27 14:51 | NUR ---
7157- Nurse updated Dr. Eng in regards to patient wanting to leave against medical advice. Nurse provided extensive education to patient in regards to the goal of treatment and having the laryngoscopy performed. Patient expressed he was not waiting and wanted IV out so he could get dressed and leave. Patient expressed he is going home. Nurse discontinued IV, without complications, no evidence of bleeding. He voided since aviles catheter removal. He worked with ST, PT, and OT today. He is steady on his gate. Nurse to have him sign AMA paper work and he expressed his ride is on their way to pick him up.
--- NOTE | 2020-04-27 15:11 | NUR ---
1505- Patient alert and oriented. Able to make his own decisions. He expresesd that he understood the risks/consequences/alternatives to leaving against medical advice. Patient expressed he goes through this a lot and understands and wants to leave. He signed release form after education provided. He denied questions. Patient expressed he did not need any further form. He expressed he wanted RN to call [facility] and give Chrisnatasha the dates as to when he was here, but no other information. Then he called them himself on his cell phone, however they did not answer the phone. Nurse provided written note on dates he was at the hospital. Nurse also called Dr. Daly in regards to patient leaving against medical advice. Dr. Eng this morning talked to patient at length, as RN was in the room with this conversation, about the risks of leaving against medical advice as the patient wanted to leave this morning. Patient expressed he understood, but did not want to stay today. Patient had his cell phone, human resources compensation analyst, hat, shirt, shoes, socks, pants, wallet, and sun glasses. He was walked out of the ICU with his own face mask.
--- NOTE | 2020-04-27 15:23 | NUR ---
SW reviewed chart and spoke with attending physician. Pt was extubated yesterday. ENT consulted and evaluated pt. Pt left AMA this afternoon. Case closed.
[2020-04-28 19:08] LABS: ANA INTERPRETATION Negative (())
== END 2020-04-27 15:10 | disposition left against medical advice (07) | DRG 208 ==
LOC: ER 08:25 → EROBS 11:00 → ICU 11:00 → TBA 16:01 → ICU 16:37
PROVIDERS: Emergency Medicine; Hospitalist; Internal Medicine Pulmonary Disease; Nurse Practitioner Family; Pediatrics; ADMIT Internal Medicine
DX: J96.01 Acute respiratory failure with hypoxia (principal); K85.90 Acute pancreatitis without necrosis or infection, unspecified; K86.1 Other chronic pancreatitis; D68.59 Other primary thrombophilia; F11.20 Opioid dependence, uncomplicated; D68.51 Activated protein C resistance; E11.9 Type 2 diabetes mellitus without complications; F17.210 Nicotine dependence, cigarettes, uncomplicated; K11.20 Sialoadenitis, unspecified; D86.9 Sarcoidosis, unspecified; E11.42 Type 2 diabetes mellitus with diabetic polyneuropathy; K21.9 Gastro-esophageal reflux disease without esophagitis; G89.29 Other chronic pain; R59.9 Enlarged lymph nodes, unspecified; Z98.1 Arthrodesis status; Z90.49 Acquired absence of other specified parts of digestive tract; Z79.899 Other long term (current) drug therapy; Z88.5 Allergy status to narcotic agent; Z88.8 Allergy status to other drugs, medicaments and biological substances; Z91.041 Radiographic dye allergy status; Z86.711 Personal history of pulmonary embolism; Z79.01 Long term (current) use of anticoagulants; Z86.718 Personal history of other venous thrombosis and embolism
CPT/HCPCS: 10078

== ENCOUNTER 2020-06-24 10:53 | Emergency (ER) | payer OTHER ==
[~2020-06-24] VITALS: Ht 182.9 cm; Wt 86.2 kg
[2020-06-24 10:58] VITALS: BP 146/85
[2020-06-24] MEDS ORDERED: ELIQUIS5 MG PO (11:08)
--- NOTE | 2020-06-24 12:19 | NUR ---
IV TEAM UNSUCCESSFUL WITH IV ATTEMPT. CHARGE NURSE UNSUCCESSFUL WITH EJ. LAB AT BEDSIDE FOR BLOOD DRAW.
[2020-06-24 12:59] LABS: ABSOLUTE NEUTROPHILS 2.3 thou/uL (1.4-8.2); BASOPHILS 1.2 % (0.0-2.0); EOSINOPHILS 9.3 % (0.0-3.0); HEMOGLOBIN 11.7 gm/dL (14.0-18.0); LYMPHOCYTES 26.5 % (24.0-44.0); MCH 29.6 pg (26.0-34.0); MCHC 32.6 g/dL (28.0-37.0); MCV 90.7 fL (80.0-100.0); MONOCYTES 9.9 % (1.0-8.0); PLATELET COUNT 201 thou/uL (150-400); POLYS 53.1 % (36.0-66.0); RBC 3.97 mil/uL (4.50-6.00); RDW 14.7 % (10.5-14.5); WBC 4.3 thou/uL (4.0-11.0)
[2020-06-24 13:07] LABS: ANION GAP 4 mmol/L (7-16); BUN 9 mg/dL (7-18); CALCIUM 8.6 mg/dL (8.5-10.1); CHLORIDE 106 mmol/L (98-107); CO2 30 mmol/L (21-32); CREATININE 0.8 mg/dL (0.7-1.3); GLUCOSE 88 mg/dL (74-106); POTASSIUM 3.8 mmol/L (3.5-5.1); SODIUM 140 mmol/L (136-145)
[2020-06-24 13:13] LABS: APTT 29.1 Seconds (24.5-32.8); D-DIMER 0.75 ug/mLFEU (0.19-0.50); PROTIME 10.5 Seconds (9.3-11.4)
[2020-06-24 13:17] LABS: LIPASE 80 U/L (73-393); MAGNESIUM 1.6 mg/dL (1.8-2.4); TROPONIN-I <0.06 ng/mL (<0.06)
--- NOTE | 2020-06-24 13:58 | NUR ---
VASCULAR TEAM CALLED TO ER ,ATTEMPTED SEVERAL PIV'S UNABLE TO THREAD CATH AFTER CANNULATION WITH USG. PT GETTING ANGRY AND UNCOOPERATIVE, NOTIFIED PIV UNSUCCESSFUL
[2020-06-24 14:19] LABS: AMP/METHAMP Negative (Negative); BARBITURATES Negative (Negative); BENZODIAZEPINES Negative (Negative); COCAINE Negative (Negative); METHADONE Negative (Negative); OPIATES POSITIVE (Negative); PCP Negative (Negative)
[2020-06-24 16:59] VITALS: BP 121/82
--- NOTE | 2020-06-24 17:14 | NUR ---
PT NOTED TO BE YELLING OUT LOUDLY. UPON ENTERING ROOM PT YELLING STATING THE DR THAT WAS JUST IN HIS ROOM WAS YELLING AT HIM AND HE DID NOT DESERVE THAT AND DOES NOT WANT TO STAY AT THE HOSPITAL IF HE WAS GOING TO BE TREATED THAT WAY. PT STATED THE DR TOLD HIM SHE WAS NOT GOING TO ORDER ADDITIONAL MEDICATIONS IN THE IV FOR HIM. PT STATES PAIN MEDICATION WORKS FOR A SHORT PERIOD AND THEN COMES BACK THE SAME. PT HAS REQUESTED ADDITIONAL DOSE OF BENADRYL FOR THE SWELLING OF THROAT/JAW AREA. ER PROVIDER STATED SHE WAS NOT GOING TO ORDER ADDITIONAL MEDICATION FOR PT AND ADMITTING PHYSICIAN IS TO NOW MAKE THOSE DECISIONS.
--- NOTE | 2020-06-24 17:18 | NUR ---
CHARGE NURSE NOTIFIED OF ABOVE ENTRY AND STATES HE WILL SPEAK TO PT.
[2020-06-24 17:40] VITALS: BP 110/66
--- NOTE | 2020-06-25 09:10 | EKG ---
[facility] [place] [address] ELECTROCARDIOGRAM REPORT Name: PINEDA,JET Kiley Room #: 170-6 ADM IN M.R.#: [id number] Admission: 06/24/20 Attend Phys: Nisa Gamboa MD Discharge: Date of : 68 Report #: [id number] THIS REPORT FOR: cc: [facility] - Clinic physician unknown [facility] - Clinic physician unknown Good Velasco MD [facility] ~ THIS REPORT FOR: //name// [facility] ED Test Date: 2020-06-24 Test Time: 11:01:22 Pat Name: JET PINEDA Department: Room: [facility] Gender: M Blindmaker: : 1970 Requested By: Martina Martinez Order Number: [id number] MD: Good Velasco Measurements Intervals [place] Rate: 79 P: 86 PA: 174 QRS: 62 QRSD: 90 T: 77 QT: 393 QTc: 451 Interpretive Statements Sinus rhythm No significant abnormality Compared to ECG 04/25/2020 08:15:57 Sinus bradycardia no longer present Electronically Signed On 06-25-2020 9:10:31 CDT by Good Velasco [email or web address] <ELECTRONICALLY SIGNED> By: Good Velasco MD, FACC 06/25/20 0910 1101 1101 Good Velasco MD, [facility] /EPI
== END 2020-06-24 17:40 | disposition left against medical advice (07) ==
LOC: ER 10:53 → EROBS 17:15
PROVIDERS: Nurse Practitioner
DX: D86.9 Sarcoidosis, unspecified (principal); R59.0 Localized enlarged lymph nodes; R11.2 Nausea with vomiting, unspecified; R07.9 Chest pain, unspecified; R06.00 Dyspnea, unspecified; E11.9 Type 2 diabetes mellitus without complications; F17.210 Nicotine dependence, cigarettes, uncomplicated; Z86.718 Personal history of other venous thrombosis and embolism; Z53.29 Procedure and treatment not carried out because of patient's decision for other reasons; Z86.711 Personal history of pulmonary embolism; Z90.49 Acquired absence of other specified parts of digestive tract; Z98.890 Other specified postprocedural states; Z79.899 Other long term (current) drug therapy; Z91.041 Radiographic dye allergy status; Z88.8 Allergy status to other drugs, medicaments and biological substances; Z88.6 Allergy status to analgesic agent; Z88.5 Allergy status to narcotic agent

== ENCOUNTER 2020-09-19 08:42 | Inpatient (IN) | payer OTHER ==
[2020-09-19] VITALS (10 sets, daily range): BP systolic 119–158; BP diastolic 71–93
[~2020-09-19] VITALS: Ht 182.9 cm; Wt 37.6 kg
--- NOTE | ~2020-09-19 | EMS ---
[address] [address] EMS Patient Care Report Name: JET PINEDA Room #: PRE M.R.#: [id number] Admission: Attend Phys: Discharge: Date of : 68 Report #: [id number] THIS REPORT FOR: //name// Report Transmitted: 09/19/2020 08:41 EMS Care Summary [place], [place]/[facility] Incident [id number] @ 09/19/2020 08:16 Incident Location [place] / [place] [address] Patient JET PINEDA Male, 50 Years 1970 Patient Address [address] [place] [id number] Patient History Pancreatitis,Hereditary Angioedema,Myocardial Infarction (NH), Patient Allergies Aspirin,Toradol, Patient Medications Atorvastatin, Epinephrine Auto-injector, Chief Complaint Angioedema Disposition Transported No Lights/[place] Dispatch Reason Chest Pain (Non-Traumatic) Transported To [facility] Narrative Dispatched to a chest pain. Upon arrival, pt was found sitting on the bus stop bench, A&Ox4, breathing unlabored and adequately, with strong radial pulses, complaining of angioedema and chest pain. ALS assessment performed and vitals [address] [address] EMS Patient Care Report Name: JET PINEDA Room #: PRE Lorie#: [id number] Admission: Attend Phys: Discharge: Date of : 68 Report #: [id number] assessed. PT stated his facial and neck swelling started last night and has continued to get worse. PT was assisted to EMS cot, secured with seatbelts, and loaded into ambulance. Pt requested transport to [facility], but was cautioned of the distance since he was driving past multiple hospitals capable of handling this issue, but pt refused a close hospital. PT was transported to [facility] and remained in no distress during transit. Initial Vitals @08:24P: 84,R: 18,BP: 176/102,Pain: 2/10,GCS: 15,CO: 2,SpO2: 100,Revised Trauma: 12, @08:25P: 82,R: 18,BP: 169/92,Pain: 0/10,GCS: 15,SpO2: 99,Revised Trauma: 12, Assessments @08:25MENTAL:Person Oriented,Time Oriented,Place Oriented,Event Oriented,SKIN:HEENT:Eyes: Left Pupil: 4-mm,Eyes: Right Pupil: 4-mm,Head/Face: No Abnormalities,Neck/Airway: No Abnormalities,LUNG SOUNDS:ABDOMEN:PELVIS//GI:No Abnormalities,EXTREMITIES:Left Arm: No Abnormalities,Right Arm: No Abnormalities,Left Leg: No Abnormalities,Right Leg: No Abnormalities,PULSE:Radial: 2+ Normal,NEURO:No Abnormalities, Impression Edema Procedures @08:26ALS AssessmentResponse: UnchangedSucceeded@08:30Oxygen FlowRate: 4 Device: Nasal Cannula (NC) Response: UnchangedSucceeded Timeline 08:14,Call Received 08:14,Dispatch Notified 08:16,Dispatched 08:17,En Route 08:21,On Scene 08:21,At Patient 08:24,BP: 176/102 M,PULSE: 84,RR: 18 R,SPO2: 100 Ox,ETCO2: ,BG: ,PAIN: 2,GCS: 15, 08:25,BP: 169/92 M,PULSE: 82,RR: 18 R,SPO2: 99 Ox,ETCO2: ,BG: ,PAIN: 0,GCS: 15, 08:26,Depart Scene 08:26,ALS Assessment,Response: UnchangedSucceeded, 08:30,Oxygen FlowRate: 4 Device: Nasal Cannula (NC) Response: UnchangedSucceeded, 08:39,At Destination 08:57,Call Closed Disclaimer v1.1 Copyright [address] [employer] [address] [address] EMS Patient Care Report Name: JET PINEDA Room #: PRE [facility].#: [id number] Admission: Attend Phys: Discharge: Date of : 68 Report #: [id number] This EMS Care Summary contains data elements from the applicable legal record (which may be displayed differently). It is designed to provide pertinent information for the following purposes: continuity of care, clinical quality, and state data reporting. The complete legal record is available to ED staff and administrators of the receiving hospital in [employer]'s Patient Tracker. All data is provided "as is."
[~2020-09-19 08:42] MED LIST changes: +ELIQUIS5 MG PO
[2020-09-19 09:39] LABS: ABSOLUTE NEUTROPHILS 2.2 thou/uL (1.4-8.2); BASOPHILS 0.8 % (0.0-2.0); EOSINOPHILS 14.1 % (0.0-3.0); HEMATOCRIT 38.8 % (42.0-52.0); HEMOGLOBIN 12.4 gm/dL (14.0-18.0); LYMPHOCYTES 21.8 % (24.0-44.0); MCHC 31.9 g/dL (28.0-37.0); MCV 87.8 fL (80.0-100.0); MONOCYTES 9.7 % (1.0-8.0); PLATELET COUNT 229 thou/uL (150-400); POLYS 53.6 % (36.0-66.0); RBC 4.42 mil/uL (4.50-6.00); WBC 4.2 thou/uL (4.0-11.0)
[2020-09-19 09:44] LABS: CALCIUM 9.1 mg/dL (8.5-10.1); CREATININE 0.9 mg/dL (0.7-1.3)
[2020-09-19 09:50] LABS: ALBUMIN 3.5 g/dL (3.4-5.0); TOTAL BILIRUBIN 0.4 mg/dL (0.2-1.0); TOTAL PROTEIN 7.5 g/dL (6.4-8.2)
--- NOTE | 2020-09-19 11:58 | NUR ---
PT DENIES HAVING ANY ALLERGY TO LORAZEPAM AND PT REPORTS THAT IT IS HALDOL HE IS ALLERGIC TO AND REFUSES TO TAKE HALDOL AND REQUESTS ATIVAN. DR MCCLOUD MADE AWARE AND ORDER CHANGED.
--- NOTE | 2020-09-19 16:37 | NUR ---
PT STATES HE SHOULD HAVE FENTANYL 100MCG EVERY 2-3 HRS. HE SAID THAT IS THE ONLY WAY HIS PAIN GETS UNDER CONTROL. PT STATES HE USED TO GET DILAUDID BUT IT WAS CHANGED BECAUSE HIS BODY GOT "TOO USED TO IT" AND NOW STATES FENTANYL DOESNT HELP BECAUSE HIS BODY IS "TOO USED TO IT".
[2020-09-19] MEDS ORDERED: OXYCONTIN10 M1 PO (20:39)
--- NOTE | 2020-09-19 22:47 | NUR ---
PT ARRIVED FROM ER TO ICU ROOM 242 AROUND 184. ADMISSION HX AND ASSESSMENT COMPLETED. PT WAS VERY ANXIOUS AND IRRITABLE UPON INITIAL ASSESSMENT. HE C/O 10/10 PAIN IN HIS MID-CHEST, EPIGASTRIC AREA, NECK, AND GROIN. HE DESCRIBED THE PAIN PRESSURE AND TIGHTENING. HE STATED HE FELT LIKE HIS THROAT WAS SWELLING. WHEN NURSING STAFF IS IN THE ROOM, PT MOANS AND ATTEMPTS TO CRY, BUT OTHERWISE NO NOISES ARE HEARD FROM THE ROOM WHEN PT IS ALONE. VSS. SPO2> 93% ON RA. LUNGS CLEAR. NO RESPIRATORY DISTRESS NOTED. AFEBRILE. NOTIFIED LARY RODRIGUEZ (TOURIST ESCORT MANAGER ANIMATION FOR HOSPITALIST) OF PT COMPLAINTS. HE WAS GIVEN A ONE TIME DOSE LORAZEPAM, WELL PRN FENTANYL AND BENADRYL. PT IS REQUESTING HIS PRN MEDICATIONS EVERY 2 HOURS INSTEAD OF THE PRESCRIBED INTERVAL OF EVERY 4 HOURS FOR FENTANYL AND EVERY 6 HOURS FOR BENADRYL. PT STATES HE MAY HAVE TO LEAVE THE HOSPITAL IF HE DOES NOT GET HIS MEDICATIONS MORE FREQUENTLY. PT STATES HE WANTS TO BE INTUBATED TO GET HELP HIM GET THROUGH HIS MISERY TONIGHT. HE IS NOW REQUESTING FENTANYL AND BENADRYL AGAIN AND WANTS TO SPEAK TO A PROVIDER. WILL PAGE TOURIST ESCORT HOSPITALIST MANAGER ANIMATION.
[2020-09-20 00:01] VITALS: BP 147/87
[2020-09-20 01:01] VITALS: BP 154/92
[2020-09-20 02:00] VITALS: BP 135/77
[2020-09-20 03:01] VITALS: BP 140/80
--- NOTE | 2020-09-20 03:39 | NUR ---
0010 - PT STATED THE PRN FENTANYL AND BENADRYL DOSES WERE NOT HELPING CONTROL HIS SYMPTOMS. HE CONTINUED TO C/O FEELING THROAT SWELLING, NON-CARDIAC CHEST PAIN, EPIGASTRIC AND GROIN PAIN. HE STATED HE WANTS TO BE "KNOCKED OUT" TONIGHT WITH MEDICATIONS. PT'S VITAL SIGNS REMAINED STABLE. NO RESPIRATORY DISTRESS NOTED. NO STRIDOR OR WHEEZING AUSCULTATED IN UPPER AIRWAYS. BILATERAL JAW/PAROTID GLAND AREAS NOTED TO BE SWOLLEN, BUT NO WORSE THAN UPON INITIAL ADMISSION. PT SHOWED NO PHYSICAL SIGNS OF AIRWAY CONSTRICTION. PT WAS GIVEN PRN FENTANYL AND BENADRYL WHEN DUE PER EMAR ORDERS. HE APPEARED TO BE SLEEP AFTER RECEIVING MEDICATIONS. 0250 - PT AGAIN REQUESTED MORE FENTANYL AND BENADRYL FOR HIS "THROAT SWELLING" AND PAIN. HE WAS REMINDED IT WAS NOT TIME YET FOR MORE MEDICATION. PT STATED HE WANTED TO BE SEEN BY A PROVIDER. NOTIFIED COLETTE BARTH. 0300 - PT STATED HE CALLED A RIDE AND WANTED TO LEAVE AMA. AMA PAPERWORK SIGNED. IV REMOVED. NOTIFIED COLETTE BARTH. SHINGLE BOLT CUTTER ROUNDED ON PT. NOTIFIED OFFSET MACHINE OPERATOR. 0320 - PT ESCORTED OUT OF HOSPITAL. ALL BELONGINGS SENT WITH PT.
== END 2020-09-20 03:20 | disposition left against medical advice (07) | DRG 155 ==
LOC: ER 08:42 → EROBS 11:12 → ICU 18:37
PROVIDERS: Emergency Medicine; ADMIT Internal Medicine; ATTEND Internal Medicine
PROC: 30233K1 Transfusion of Nonautologous Frozen Plasma into Peripheral Vein, Percutaneous Approach (ICD-10-PCS; principal; 2020-09-19)
DX: K11.20 Sialoadenitis, unspecified (principal); F11.20 Opioid dependence, uncomplicated; D68.59 Other primary thrombophilia; D68.2 Hereditary deficiency of other clotting factors; F41.9 Anxiety disorder, unspecified; F17.210 Nicotine dependence, cigarettes, uncomplicated; D86.9 Sarcoidosis, unspecified; Z53.29 Procedure and treatment not carried out because of patient's decision for other reasons; D84.1 Defects in the complement system; F12.10 Cannabis abuse, uncomplicated; K21.9 Gastro-esophageal reflux disease without esophagitis; G89.29 Other chronic pain; Z90.49 Acquired absence of other specified parts of digestive tract; Z79.899 Other long term (current) drug therapy; Z79.01 Long term (current) use of anticoagulants; Z88.1 Allergy status to other antibiotic agents; Z91.041 Radiographic dye allergy status; Z88.5 Allergy status to narcotic agent; Z91.048 Other nonmedicinal substance allergy status; I25.2 Old myocardial infarction
CPT/HCPCS: 10078

== ENCOUNTER 2021-03-08 18:29 | Inpatient (IN) | payer OTHER ==
[~2021-03-08] VITALS: Ht 182.9 cm; Wt 81.6 kg
--- NOTE | ~2021-03-08 | HC ---
[facility] [place] [address] CONSULTATION Name: JET PINEDA Room #: 457-P ADM IN M.R.#: [id number] Admission: 03/08/21 Attend Phys: Chris Aguayo MD Discharge: Date of : 68 Report #: [id number] THIS REPORT FOR: cc: [facility] - Clinic physician unknown [facility] - Clinic physician unknown Pete Dyer MD ~ DATE OF SERVICE: 03/09/2021 HISTORY OF PRESENT ILLNESS: This 50-year-old male patient who was evaluated by me for seizure. He says that he went to [facility] 4 days ago with a seizure. According to him, they gave him KEPPRA AND HE WAS ALLERGIC TO IT, BUT HE GOT KEPPRA here. He also mentioned something about valproic acid. I do not know who gave him. Review of the records indicates that he is on gabapentin and the anticonvulsant dosages he is on, although he may be on it for pain. REVIEW OF SYSTEMS: A lot of review of systems is from the record because this patient is a very reluctant historian. He says that he has a history of angioedema. He has a history of sarcoidosis, but that looks like involving the parotid gland. He had multiple intubations. He has history of anxiety, chronic pain syndrome, chronic narcotic use, parotid gland involvement. According to the records, he had multiple intubations. All of them were not warranted. He has factor V mutation. He is on chronic anticoagulation. History of diabetes. He has left AMA in the past. This was his relevant 14-point review of system. PAST MEDICAL HISTORY: Positive for seizure. FAMILY HISTORY: Positive for seizure. SOCIAL HISTORY: He says he smokes. He does not drink any alcohol and he does not do any drugs. ALLERGIES: THERE IS A LONG LIST OF ALLERGIES IN THE CHART. PHYSICAL EXAMINATION: Indicates he is alert, responsive, able to follow simple and complex commands. Cranial nerve examination 2-12 looks mostly unremarkable. His neuromuscular examination is symmetrical. There is no meningeal sign. Cardiac examination is unremarkable. No respiratory difficulty. He is a reasonably well-developed individual. His hearing and vision looks intact. His CT scan of the head was done on admission and that appears unremarkable. LABORATORY DATA: Indicates that his potassium is 2.9. His estimated GFR is 108 and it has been never lower than that. IMPRESSION AND PLAN: I suggested to the patient that since he has sarcoidosis, he has an MRI of the brain with and without contrast. [place] [id number] CONSULTATION Name: JET PINEDA Room #: 457-P [facility].#: [id number] Admission: 03/08/21 Attend Phys: Chris Aguayo MD Discharge: Date of : 68 Report #: [id number] contrast because he says HE IS ALLERGIC TO THE DYE; even when I explained to him that the MRI dye is different, although he can be allergic to that also. He is already on therapeutic dosages of gabapentin, which should have a good anticonvulsant effect. I will get an EEG done. If he wants to do a spinal tap, we can proceed with it, but otherwise, I think first test should be MRI of the brain with and without contrast. It e does have some potential side effects like everything else, but chances of having irreversible dermatological reaction or dye reactions are low. Thank you very much for this referral. By: 40 49 Pete Dyer MD /nt
[~2021-03-08 18:29] MED LIST changes: +OXYCONTIN10 M1 PO
[2021-03-08 18:30] VITALS: BP 167/122
[2021-03-08 23:22] VITALS: BP 156/103
[2021-03-08 23:43] VITALS: BP 128/72
--- NOTE | 2021-03-09 01:15 | NUR ---
Pt. admitted to the unit from the emergency room accompanied by staff. He ambulated from the stretcher to the bed with assistance of one. Bp elevated, but patient did voice pain all over. Some swelling noted around the parotid area of the face. Albertina WOLFE called and notified of swelling, c/o pain and elevated bp. See new orders (cpoe). No shortness of air noted. Head of the bed elevated. Admission assessment and history is completed. Meds given for pain (see emar) with some relief noted. Seizure precautions in place and no noted seizure activity noted. Bed alarm is on.
[2021-03-09 01:25] VITALS: BP 165/100
[2021-03-09 01:34] LABS: ABSOLUTE NEUTROPHILS 4.5 thou/uL (1.4-8.2); BASOPHILS 0.6 % (0.0-2.0); EOSINOPHILS 0.5 % (0.0-3.0); HEMATOCRIT 32.8 % (42.0-52.0); HEMOGLOBIN 10.7 gm/dL (14.0-18.0); LYMPHOCYTES 21.1 % (24.0-44.0); MCH 27.6 pg (26.0-34.0); MCHC 32.5 g/dL (28.0-37.0); MCV 84.9 fL (80.0-100.0); MONOCYTES 10.8 % (1.0-8.0); PLATELET COUNT 275 thou/uL (150-400); RBC 3.86 mil/uL (4.50-6.00); RDW 16.5 % (10.5-14.5); WBC 6.7 thou/uL (4.0-11.0)
[2021-03-09 01:36] LABS: CALCIUM 8.9 mg/dL (8.5-10.1); CREATININE 0.9 mg/dL (0.7-1.3); POTASSIUM 3.3 mmol/L (3.5-5.1)
[2021-03-09 01:42] LABS: TOTAL BILIRUBIN 0.4 mg/dL (0.2-1.0); TOTAL PROTEIN 6.9 g/dL (6.4-8.2)
[2021-03-09 05:55] LABS: HEMATOCRIT 31.9 % (42.0-52.0); HEMOGLOBIN 10.5 gm/dL (14.0-18.0); MCH 27.8 pg (26.0-34.0); MCV 84.3 fL (80.0-100.0); RBC 3.79 mil/uL (4.50-6.00); RDW 16.4 % (10.5-14.5); WBC 5.4 thou/uL (4.0-11.0)
[2021-03-09 05:56] VITALS: BP 141/94
--- NOTE | 2021-03-09 06:00 | NUR ---
Pt. iv found out and pt. was a very hard stick in the emergency room and had to be inserted with assistance of ultrasound. rides supervisor notified and she voiced patient will have to wait for the iv team. Also, Albertina WOLFE notified. Pt. wanting pain meds and po hydrocodone offered, but he refused. Pt. said they do nothing for him. Pt. also refused his gabapentim this am. He also was informed that iv team will be called.
[2021-03-09 06:10] LABS: ANION GAP 10 mmol/L (7-16); BUN 7 mg/dL (7-18); CALCIUM 8.7 mg/dL (8.5-10.1); CHLORIDE 105 mmol/L (98-107); CO2 27 mmol/L (21-32); CREATININE 0.9 mg/dL (0.7-1.3); GLUCOSE 126 mg/dL (74-106); SODIUM 142 mmol/L (136-145)
[2021-03-09 06:18] LABS: POTASSIUM 2.9 mmol/L (3.5-5.1)
[2021-03-09 06:34] LABS: CHOLESTEROL 215 mg/dL (<200); HDL CHOLESTEROL 53 mg/dL (>40); LDL CHOLESTEROL 129 mg/dL (<100); TC:HDL 4.1 Ratio (Not establshd); TRIGLYCERIDE 166 mg/dL (<150); VLDL 33 mg/dL (<40)
[2021-03-09 06:37] LABS: SERUM ASSESSMENT Clear
[2021-03-09 07:30] VITALS: BP 137/97
--- NOTE | 2021-03-09 13:46 | NUR ---
Assess due to consult received. Hx angioedema/sarcoidosis, multiple need for past intubations, narcotic abuse. Pt with increased anxiety when RD entered room. Repeatedly stating "I'm not diabetic! I should be on regular diet and have them stop pricking my finger!". BG levels have been 121-126 and there is questionable hx DM on old chart. Physician has ordered an A1C which is pending. Assisted pt with menu selections. States no difficulty swallowing right now. Pt also felt he had lost weight. Current wt 180 lb is same wt from 04/2020 admission. Low nutrition risk. will clarify diet order once A1C back.
--- NOTE | 2021-03-09 13:47 | NUR ---
VAT CONSULTED FOR PIV, ATTEMPTED ML AFTER FAILED PIV'S. UNABLE TO PASS GUIDEWIRE MORE THAN FEW CM'S. ATTEMPTED MINDA AND CATIE, PT HAS HX OF NUMEROUS PIV'S. DR VELAZCO NOTIFIED OF DIFFICULTY AND DARIAN JONES. PIV FINALLY PLACED IN RFA
[2021-03-09] MEDS ORDERED: OXYCONTIN10 M1 PO (13:51)
[2021-03-09] MEDS ORDERED: PERCOCET 10-321 EAC1 PO (13:53)
--- NOTE | 2021-03-09 14:33 | NUR ---
Chart reviewed and discussed with the care team. Pt sleeping this afternoon. Pt known to cm from previous admissions. Pt is normally indep with gait and adl's. His sister is his emergency contact. He now has [place] medicaid in place for scripts and f/u care at [facility]. He has hx of mental health issues, identify theft, and seeking pain medications. The pt was last here in April 2020 and left AMA after being extubated. Dc planning needs are uncertain at this time. Will follow along should needs arise.
--- NOTE | 2021-03-09 19:49 | NUR ---
Assumed pt care this am with no IV pt is a very hard stick, several attempts made, IV team came in and placed a right UA that only lasted for 3 hours. Pt is very anxious, states his airways are swelling up and he needs to be in the ICU. VS checked all within normal range. MD aware, pt insisting that his medication be changed to IM if no access was to be obtained immediately. Pt went down to IR for a central line placement through the right jugular, confimed for use by IR, though line cannot be used to draw blood. Was to be seen by Dr. Chavze (ENT) but pt was in IR, opted to come tomorrow instead. All supplies needed are in the IV bin and flexible ENT scope in the med room. Pt is manipulative, asking for pain meds from others that passby even if meds were given 5 minutes prior. POC followed, endorsed to the night nurse. Seizure precaution in place none noted for this shift.
[2021-03-09 23:06] LABS: GLYCOHEMOGLOBIN (HGB A1C) 5.6 % (4.8-5.6)
--- NOTE | 2021-03-10 02:29 | NUR ---
ASSUMED CARE OF PT AT SHIFT CHANGE. PT IS AOX4 AND LETS NEEDS BE KNOWN. FALL PRECAUTION IN PLACE. PT REFUSED VITALS AND ACCUCHECK THIS SHIFT. ASSESSMENT CHARTED. PT REPORTED GENERALIZED PAIN AND WAS TREATED WITH PRN PAIN MEDS. PT REPORTS THAT PAIN STILL IS NOT CONTROLLED AND REQUESTS MORE PAIN MEDICATION. PT DENIED NAUSEA OR SOA. SCHEDULED DIPHENHYDRAMINE GIVEN. PT WAS ABLE TO GET COMFORTABLE AND SLEEP PART OF THE SHIFT. WILL CONTINUE TO MONITOR FOR CHANGES.
[2021-03-10 08:04] VITALS: BP 127/80
--- NOTE | 2021-03-10 09:09 | NUR ---
Pt. stated he could not swallow & needed to be intibated-DIRECTOR OF OUTREACH activated-see flowsheet
[2021-03-10 11:28] VITALS: BP 155/104
--- NOTE | 2021-03-10 14:49 | NUR ---
Assumed pt care at 7am.Pt in bed c/o throat pain.Dr Aguayo notified.US neck ordered stat and ENT consult called as ordered.Dr Chavez rounded on pt later this am but pt refused ENT procedure.Assessment completed.vss.But pt wanted fentanyl ivp instead of po pain med.One dose given per Dr Agauyo.Later this afternoon around 1400,pt called this rn and said he will go AMA if he can't have percocet 10/325 2 tab anytime he called out for pain med.Rn notified doc. master certified rv technician here but pt refused,he said that rn should remove rij iv so he can go to another hospital.Dr Aguayo notified and okay pt to dc AMA.Pt left at 1415 ambulatory after iv dc'd.
== END 2021-03-10 14:25 | disposition left against medical advice (07) | DRG 155 ==
LOC: ER 18:29 → EROBS 23:03 → 4W 23:03
PROVIDERS: Nurse Practitioner; Nurse Practitioner Family; ADMIT Internal Medicine; ATTEND Internal Medicine
PROC: B548ZZA Ultrasonography of Superior Vena Cava, Guidance (ICD-10-PCS; principal; 2021-03-09)
PROC: 02HV33Z Insertion of Infusion Device into Superior Vena Cava, Percutaneous Approach (ICD-10-PCS; principal; 2021-03-09)
PROC: B5181ZA Fluoroscopy of Superior Vena Cava using Low Osmolar Contrast, Guidance (ICD-10-PCS; principal; 2021-03-09)
DX: K11.20 Sialoadenitis, unspecified (principal); D68.59 Other primary thrombophilia; D68.2 Hereditary deficiency of other clotting factors; T88.6XXA Anaphylactic reaction due to adverse effect of correct drug or medicament properly administered, initial encounter; F41.9 Anxiety disorder, unspecified; D86.9 Sarcoidosis, unspecified; G89.4 Chronic pain syndrome; F12.10 Cannabis abuse, uncomplicated; F17.210 Nicotine dependence, cigarettes, uncomplicated; E11.42 Type 2 diabetes mellitus with diabetic polyneuropathy; E78.5 Hyperlipidemia, unspecified; K21.9 Gastro-esophageal reflux disease without esophagitis; R59.9 Enlarged lymph nodes, unspecified; R59.0 Localized enlarged lymph nodes; T38.0X5A Adverse effect of glucocorticoids and synthetic analogues, initial encounter; Y92.89 Other specified places as the place of occurrence of the external cause; Z79.891 Long term (current) use of opiate analgesic; Z86.718 Personal history of other venous thrombosis and embolism; Z90.49 Acquired absence of other specified parts of digestive tract; Z88.8 Allergy status to other drugs, medicaments and biological substances; Z88.6 Allergy status to analgesic agent; Z91.041 Radiographic dye allergy status; Z91.14 Patient's other noncompliance with medication regimen; Z53.29 Procedure and treatment not carried out because of patient's decision for other reasons
CPT/HCPCS: 10045

== ENCOUNTER 2021-11-11 12:30 | Emergency (ER) | payer OTHER ==
[~2021-11-11] VITALS: Ht 185.4 cm; Wt 86.2 kg
[2021-11-11 16:30] LABS: ABSOLUTE NEUTROPHILS 2.2 thou/uL (1.4-8.2); BASOPHILS 1.3 % (0.0-2.0); EOSINOPHILS 13.1 % (0.0-3.0); HEMATOCRIT 31.7 % (42.0-52.0); HEMOGLOBIN 10.2 gm/dL (14.0-18.0); LYMPHOCYTES 24.3 % (24.0-44.0); MCH 27.9 pg (26.0-34.0); MCHC 32.3 g/dL (28.0-37.0); MCV 86.4 fL (80.0-100.0); MONOCYTES 12.1 % (1.0-8.0); PLATELET COUNT 267 thou/uL (150-400); POLYS 49.2 % (36.0-66.0); RBC 3.67 mil/uL (4.50-6.00); RDW 16.3 % (10.5-14.5); WBC 4.5 thou/uL (4.0-11.0)
[2021-11-11 16:39] LABS: CALCIUM 8.8 mg/dL (8.5-10.1); CREATININE 0.9 mg/dL (0.7-1.3); POTASSIUM 3.6 mmol/L (3.5-5.1)
[2021-11-11] MEDS ORDERED: OXCARBAZEPINE150 MG PO (16:44)
[2021-11-11] MEDS ORDERED: OXYBUTYNIN 5 MG5 M2 PO (16:45)
[2021-11-11] MEDS ORDERED: XARELTO15 MG PO (16:46)
[2021-11-11] MEDS ORDERED: SPIRONOLACTONE25 MG PO (16:48)
[2021-11-11 17:24] VITALS: BP 141/88
== END 2021-11-11 17:19 | disposition home or self-care (01) ==
LOC: ER 12:30
PROVIDERS: Student in an Organized Health Care Education/Training Program
DX: M79.89 Other specified soft tissue disorders (principal); F41.9 Anxiety disorder, unspecified; F17.210 Nicotine dependence, cigarettes, uncomplicated; Z79.1 Long term (current) use of non-steroidal anti-inflammatories (NSAID); Z79.891 Long term (current) use of opiate analgesic; Z79.899 Other long term (current) drug therapy; Z86.718 Personal history of other venous thrombosis and embolism; Z98.890 Other specified postprocedural states; Z90.49 Acquired absence of other specified parts of digestive tract; Z88.6 Allergy status to analgesic agent; Z88.3 Allergy status to other anti-infective agents; Z91.041 Radiographic dye allergy status; Z88.5 Allergy status to narcotic agent; Z88.8 Allergy status to other drugs, medicaments and biological substances; Z91.09 Other allergy status, other than to drugs and biological substances